=== PATIENT | male | born 1985 | race Caucasian/White ===

== ENCOUNTER 2016-10-23 07:56 | Emergency (ER) | payer OTHER ==
[~2016-10-23] VITALS: Ht 175.3 cm; Wt 96.7 kg
[2016-10-23 08:46] LABS: microscopic required? NO
[2016-10-23 08:58] LABS: BASOPHIL % 0.4 % (0-2); PLATELET COUNT 230 x10^3mcL (130-400); RED CELL DISTRIBUTION WIDTH 12.4 % (11.5-14.5)
[2016-10-23 09:01] LABS: CALCIUM 9.1 mg/dL (8.5-10.1); CARBON DIOXIDE 27.3 mmol/L (21-32); CHLORIDE SERUM 100 mmol/L (98-107); GFR1 > 60 mL/min; GLUCOSE SERUM 116 mg/dL (74-106); SODIUM SERUM 137 mmol/L (136-145)
[2016-10-23 09:06] LABS: ALBUMIN 4.3 g/dL (3.4-5.0); ALKALINE PHOSPHATASE 115 U/L (46-116); ALT/SGPT 64 U/L (16-63); AMYLASE 40 U/L (25-115); AST/SGOT 27 U/L (15-37); BILIRUBIN TOTAL 0.6 mg/dL (0.20-1.00); LIPASE 124 IU/L (73-393); TOTAL PROTEIN, SERUM 7.7 g/dL (6.4-8.2)
[2016-10-23 09:12] LABS: CHOLESTEROL 226 mg/dL (<200); HDL CHOLESTEROL 72 mg/dL (40-60)
[2016-10-23 09:21] LABS: urine erythrocyte NEGATIVE (NEGATIVE)
[2016-10-23 09:30] LABS: AMPHETAMINE QUAL UR NONE DETECTED (NEG <=1000)
[2016-10-23 10:52] VITALS: BP 138/83
== END 2016-10-23 10:58 | disposition home or self-care (01) ==
LOC: ED 07:56
PROVIDERS: Emergency Medicine
DX: R07.89 Other chest pain (principal); G47.00 Insomnia, unspecified; J45.909 Unspecified asthma, uncomplicated; F32.9 Major depressive disorder, single episode, unspecified; F12.90 Cannabis use, unspecified, uncomplicated; Z86.79 Personal history of other diseases of the circulatory system; Z88.8 Allergy status to other drugs, medicaments and biological substances
CPT/HCPCS: 83880; J1885; Q0092

== ENCOUNTER 2017-10-28 08:42 | Emergency (ER) | payer OTHER ==
[~2017-10-28] VITALS: Ht 175.3 cm; Wt 90.7 kg
[2017-10-28 08:50] VITALS: Ht 175.3 cm; Wt 90.7 kg
[2017-10-28 10:19] VITALS: BP 103/67
== END 2017-10-28 10:19 | disposition home or self-care (01) ==
LOC: ED 08:42
DX: R07.89 Other chest pain (principal); J45.909 Unspecified asthma, uncomplicated; Z90.49 Acquired absence of other specified parts of digestive tract

== ENCOUNTER 2020-05-27 11:22 | Emergency (ER) | payer OTHER ==
[~2020-05-27] VITALS: Ht 175.3 cm; Wt 89.8 kg
[2020-05-27 11:36] VITALS: Ht 175.3 cm; Wt 89.8 kg
[2020-05-27] MEDS ORDERED: LIDODERM51 TOP (12:15)
[2020-05-27] MEDS ORDERED: MEDROL DOSEPAK4 MG PO (12:15)
[2020-05-27 13:09] VITALS: BP 110/65
== END 2020-05-27 13:09 | disposition home or self-care (01) ==
LOC: ED 11:22
DX: M54.41 Lumbago with sciatica, right side (principal); J45.909 Unspecified asthma, uncomplicated; X50.0XXA Overexertion from strenuous movement or load, initial encounter; Y93.89 Activity, other specified; Y92.89 Other specified places as the place of occurrence of the external cause; Y99.0 Civilian activity done for income or pay
CPT/HCPCS: J1885

== ENCOUNTER 2020-06-08 18:54 | Emergency (ER) | payer OTHER ==
[~2020-06-08] VITALS: Ht 172.7 cm; Wt 74.8 kg
[~2020-06-08 18:54] MED LIST: LIDODERM51 TOP; MEDROL DOSEPAK4 MG PO
[2020-06-08 19:36] VITALS: Ht 172.7 cm; Wt 74.8 kg
[2020-06-08 22:30] VITALS: BP 138/63
== END 2020-06-08 22:30 | disposition home or self-care (01) ==
LOC: ED 18:54
DX: M54.41 Lumbago with sciatica, right side (principal); J45.909 Unspecified asthma, uncomplicated
CPT/HCPCS: J1100; J1885

== ENCOUNTER → 2020-06-15 | Outpatient (CLI) | payer OTHER | END | disposition home or self-care (01) | LOC: MI 15:43 | PROVIDERS: ATTEND Orthopaedic Surgery | DX: M54.16 Radiculopathy, lumbar region (principal) ==